=== PATIENT | female | born 1955 | race Caucasian/White ===

== ENCOUNTER 2019-05-07 10:03 | Outpatient (CLI) | payer MEDICARE, SELFPAY ==
--- NOTE | ~2019-05-07 | MM_ITS ---
EXAMINATION: MM screening chris BI w roscoe HISTORY: Screening mammogram TECHNIQUE: Craniocaudal and mediolateral oblique 3-D tomosynthesis images were obtained and synthetic 2-D images were generated. CAD analysis was submitted and interpreted. COMPARISON: 07/16/2017, 03/01/2016, 01/18/2015 bilateral digital screening mammogram examinations BREAST PARENCHYMAL COMPOSITION: There are scattered areas of fibroglandular density. FINDINGS: Stable mild retraction in the nipple area. There is no evidence of suspicious mass, calcifi cation, or architectural distortion to suggest malignancy in either breast. There has been no suspici ous interval change. IMPRESSION: 1. No mammographic evidence of malignancy. 2. Recommend routine screening mammography in one year. BI-RADS Category 1: Negative Reviewed, dictated and finalized at location A. GER OPERATIONS AND PROCUREMENT
== END 2019-05-07 10:04 | disposition home or self-care (01) ==
PROVIDERS: PCP Internal Medicine; Visit Provider Internal Medicine
DX: Z12.31 Encounter for screening mammogram for malignant neoplasm of breast (principal)
CPT/HCPCS: 77063; 77067

== ENCOUNTER 2019-06-10 10:18 | Outpatient (CLI) | payer MEDICARE, SELFPAY ==
--- NOTE | ~2019-06-10 | US_ITS ---
EXAMINATION: US retroperitoneal comp EXAM DATE: 06/10/2019 10:47 INDICATION: Chronic infective cystitis. TECHNIQUE: Multiple grayscale and Doppler images of the kidneys were obtained (by a technologist who performed the scan) and subsequently reviewed. There is no prior study for comparison. FINDINGS: Right kidney: There is normal contour and echogenicity. It measures 9.6 x 4.7 x 4.3 centimeters. Th ere are no focal renal lesions identified. There is no hydronephrosis. Left kidney: There is normal contour and echogenicity. It measures 10.6 x 4.2 x 5.3 centimeters. Pro bable left 6 mm stone. There is no hydronephrosis. Bladder unremarkable. IMPRESSION: 1. Probable left nephrolithiasis. 2. No hydronephrosis. Reviewed, dictated and finalized at location A.
== END 2019-06-10 10:19 | disposition home or self-care (01) ==
PROVIDERS: PCP Internal Medicine; Visit Provider Nurse Practitioner Adult Health
DX: N30.21 Other chronic cystitis with hematuria (principal)
CPT/HCPCS: 76770

== ENCOUNTER 2019-06-15 13:11 | Outpatient (CLI) | payer MEDICARE, SELFPAY ==
--- NOTE | ~2019-06-15 | XR_ITS ---
XR abdomen/kub 1V 06/15/2019 15:11 INDICATION: Left ureteral stone TECHNIQUE: KUB COMPARISON: Comparison to multiple prior studies sequentially, with oldest reviewed study dated 04/15. FINDINGS: Bowel gas pattern is normal. There are pelvic phleboliths. There is no evidence of free air , mass, organomegaly, ascites or obstruction. No abnormal calculi are seen. The bones appear intact . IMPRESSION: 1: No acute abdominal abnormality identified. Reviewed, dictated and finalized at location A.
== END 2019-06-15 13:12 | disposition home or self-care (01) ==
PROVIDERS: PCP Internal Medicine; Visit Provider Nurse Practitioner Adult Health
DX: N39.0 Urinary tract infection, site not specified (principal); N20.0 Calculus of kidney
CPT/HCPCS: 74018; 87086; 87088

== ENCOUNTER 2019-10-15 11:06 | Emergency (ER) | payer MEDICARE, SELFPAY ==
[2019-10-15 11:18] VITALS: BP 121/72; PULSE 95; RESP 20; TEMP 36.7; O2SAT 97
--- NOTE | 2019-10-15 11:24 | ED.URI ---
HPI - URI/Sore Throat General Chief Complaint: Upper Respiratory Infection Stated Complaint: pos sinus infect/fever/sore throat Time Seen by Provider: 10/15/19 11:24 Source: patient and RN notes reviewed History of Present Illness HPI Narrative: Patient is a 64-year-old female who presents the urgent care with complaints of mild cough, sore throat and sinus pressure. Patient states that is been ongoing for approximately 1 month and her doctor gave her a Z-Matt, which she finished approximately 2 weeks ago. Patient states she is also had Farrukh testing which was negative. Patient states that the last couple days a sinus pressure has increased severely and now she is having headaches. Denies of any nausea or vomiting. No other acute complaints. No acute distress noted. Patient read the plan of care. Related Data Home Medications Medication Instructions Recorded Confirmed levothyroxine 88 mcg tablet 88 mcg PO DAILY 02/12/19 10/15/19 liothyronine 5 mcg tablet 5 mcg PO DAILY 02/12/19 10/15/19 multivitamin 1 tablet PO DAILY 02/12/19 10/15/19 omeprazole 40 mg capsule,delayed 40 mg PO DAILY 02/12/19 10/15/19 release pregabalin 100 mg PO TID 10/15/19 10/15/19 Allergies Allergy/AdvReac Type Severity Reaction Status Date / Time cephalexin Allergy Unknown Rash Verified 10/15/19 11:30 Cephalosporins Allergy Unknown Hives Verified 10/15/19 11:30 morphine Allergy Unknown Rash Verified 10/15/19 11:30 Quinolones Allergy Unknown Rash Verified 10/15/19 11:30 Review of Systems Review of Systems: Narrative: CONSTITUTIONAL: Denies fever, chills, or sweats. EYES: Denies visual changes, redness, or discharge. ENT: Reports of sore throat, sinus pressure CARDIOVASCULAR: Denies chest pain, palpitations, or edema. RESPIRATORY: Reports a mild cough without dyspnea GASTROINTESTINAL: Denies abdominal pain, nausea, vomiting, or diarrhea. GENITOURINARY: Denies dysuria or hematuria. SKIN: Denies rash or itching. MUSCULOSKELETAL: Denies back pain, joint pain, or myalgia. NEUROLOGIC: Reports of headache All other systems reviewed are negative, except as documented in HPI. [facility] Social History Social History Smoking status: Never smoker Alcohol intake: never Comments At the time of my signature, I reviewed and agree with the nursing past medical, surgical, social, and family history. There is no relevant family history pertinent to the patient complaint. Exam Narrative: Exam Narrative: GENERAL: This is a well-nourished, well-developed patient, in no apparent distress. HEAD: normocephalic, atraumatic. Frontal sinus tenderness EYES: PERRL. Sclera clear/white. Vision is grossly intact. EARS: External ears normal, auditory canals clear and without drainage, TMs normal without perforation. Hearing grossly intact. NOSE: External nose normal with no obvious nasal discharge, mild bilateral erythemic nares with clear to yellow rhinorrhea THROAT: Mucous membranes moist, mild erythema noted posterior oropharynx with moderate postnasal drainage NECK: Neck supple CARDIOVASCULAR: Regular rate and rhythm without murmurs, gallops, or rubs. RESPIRATORY: Clear to auscultation. Breath sounds equal bilaterally. No wheezes, rales, or rhonchi. SKIN: warm, intact with no suspicious lesions or rash, good texture and turgor. NEURO: awake, alert, and oriented to person, place and time. There were no obvious focal neurologic abnormalities. EXTREMITIES: No clubbing, cyanosis, or edema. Course Vital Signs Vital signs: Vital Signs Temperature 98.1 F 10/15/19 11:18 Pulse Rate 95 10/15/19 11:18 Respiratory Rate 10/15/19 11:18 Blood Pressure 121/72 10/15/19 11:18 Pulse Oximetry 97 10/15/19 11:18 Temperature 98.1 F 10/15/19 11:18 Pulse Rate 95 10/15/19 11:18 Respiratory Rate 10/15/19 11:18 Blood Pressure 121/72 10/15/19 11:18 Pulse Oximetry 97 10/15/19 11:18 Reviewed
== END 2019-10-15 11:53 | disposition home or self-care (01) ==
PROVIDERS: Emergency Provider Nurse Practitioner Family; PCP Internal Medicine
DX: J02.9 Acute pharyngitis, unspecified (principal); J32.9 Chronic sinusitis, unspecified; J45.909 Unspecified asthma, uncomplicated; K21.9 Gastro-esophageal reflux disease without esophagitis; M79.7 Fibromyalgia; E03.9 Hypothyroidism, unspecified
CPT/HCPCS: 87081; 87880; 99213; G0463

== ENCOUNTER 2019-11-02 12:32 | Outpatient (CLI) | payer MEDICARE, SELFPAY ==
--- NOTE | ~2019-11-02 | XR_ITS ---
EXAMINATION: XR chest 2V DATE: 11/02/2019 13:00 INDICATION: Shortness of breath. Fever. TECHNIQUE: Frontal and lateral views of the chest were obtained. COMPARISON: Chest single view 07/29/2015 FINDINGS: Calcified left lung nodules are consistent with old granulomatous disease. There is mild at electasis in lingula. No pleural effusion or pneumothorax. The heart size is normal. There are suture anchors in left glenoid. Surgical clips in the right upper quadrant are likely from cholecystectomy. IMPRESSION: 1. Mild atelectasis in lingula. Reviewed, dictated and finalized at location B.
== END 2019-11-02 12:33 | disposition home or self-care (01) ==
PROVIDERS: PCP Internal Medicine; Visit Provider Internal Medicine
DX: R06.02 Shortness of breath (principal); J98.11 Atelectasis
CPT/HCPCS: 71046

== ENCOUNTER 2020-01-31 11:17 | Outpatient (CLI) | payer MEDICARE, SELFPAY ==
--- NOTE | ~2020-01-31 | CT_ITS ---
EXAMINATION: CT sinus wo con DATE: 01/31/2020 11:44 INDICATION: Chronic sinusitis. TECHNIQUE: Computed tomography (CT) of the paranasal sinuses was performed without intravenous contra st. Iterative reconstruction technique was employed. The dose-length product was 325.47 mGy-cm. COMPARISON: CT sinuses 04/02/2016 FINDINGS: The frontal sinuses are hypoplastic. The ethmoid, sphenoid, and right maxillary sinuses are clear. There is mild mucosal thickening in left maxillary sinus near the ostium. There is a Matthieu c ell on the right. The ostiomeatal units are patent. The middle turbinates are paradoxical. There is p neumatization of the vertical lamina of right middle turbinate. There is rightward deviation of the n stephanie septum. IMPRESSION: 1. Rightward deviation of the nasal septum. 2. Mild mucosal thickening in left maxillary sinus near the ostium. Reviewed, dictated and finalized at location A. ERECTOR
== END 2020-01-31 11:18 | disposition home or self-care (01) ==
PROVIDERS: PCP Internal Medicine
DX: J32.9 Chronic sinusitis, unspecified (principal)
CPT/HCPCS: 70486

== ENCOUNTER 2020-02-23 14:51 | Outpatient (CLI) | payer MEDICARE, SELFPAY ==
[2020-02-23 15:22] LABS: Basophils Percent Auto 0.6 % (0.2-1.2); Eosinophils Absolute Auto 0.1 K/mm3 (0-0.3); Eosinophils Percent Auto 2.8 % (0-4.4); Hematocrit 42.8 % (37.0-47.0); Hemoglobin 14.5 g/dL (12.0-15.0); Immature Granulocyte Absolute 0.02 K/mm3 (0.00-0.031); Immature Granulocyte Percent A 0.4 % (0-0.5); Lymphocytes Absolute Auto 0.49 K/mm3 (0.9-3.2); Lymphocytes Percent Auto 9.9 % (18.3-44.2); Mean Corpuscular HGB Conc 33.9 g/dl (32-36); Mean Corpuscular Hemoglobin 29.5 pg (26-34); Mean Corpuscular Volume 87.2 fl (80-100); Mean Platelet Volume 8.7 fl (7.4-10.4); Monocytes Absolute Auto 0.3 K/mm3 (0.1-0.6); Monocytes Percent Auto 5.5 % (2.6-8.5); Neutrophils Percent Auto 80.8 % (45.5-73.1); Platelet Count Result 255 k/mm3 (150-375); Red Blood Count 4.91 M/mm3 (4.2-5.4); Red Cell Distribution Width 13.1 % (11.5-14.5)
[2020-02-23 15:29] LABS: Alanine Aminotransferase 17 U/L (4-35); Albumin Level 4.7 g/dL (3.5-5.1); Alkaline Phosphatase 65 U/L (38-126); Anion Gap 8 mmol/L (8-16); Aspartate Amino Transferase 28 U/L (14-36); Bilirubin,Total 0.7 mg/dL (0.2-1.3); Blood Urea Nitrogen 12 mg/dL (7-17); Calcium 9.9 mg/dL (8.4-10.2); Carbon Dioxide 31 mmol/L (22-30); Chloride 102 mmol/L (98-107); Cholesterol 253 mg/dL (0-200); Estimated Glomerular Filt Rate 55; Glucose 92 mg/dL (65-105); HDL Direct 70 mg/dL; Sodium 141 mmol/L (137-145); Triglycerides 158 mg/dL (<150)
[2020-02-23 15:40] LABS: LDL Cholesterol Direct 118 mg/dL
[2020-02-23 16:29] LABS: Vitamin D 25 Hydroxy 27.8 ng/mL
== END 2020-02-23 14:52 | disposition home or self-care (01) ==
PROVIDERS: PCP Internal Medicine; Visit Provider Internal Medicine
DX: E55.9 Vitamin D deficiency, unspecified (principal); F32.9 Major depressive disorder, single episode, unspecified; Z51.81 Encounter for therapeutic drug level monitoring; Z79.899 Other long term (current) drug therapy; E03.9 Hypothyroidism, unspecified; E78.5 Hyperlipidemia, unspecified
CPT/HCPCS: 36415; 80053; 80061; 82306; 84443; 85025

== ENCOUNTER 2020-02-29 08:56 | Outpatient (CLI) | payer MEDICARE, SELFPAY ==
--- NOTE | ~2020-02-29 | DEXA_ITS ---
Bone Density Report Name: Nany Schuler Age: 64 Sex: Female Ethnicity: White Date of : 1955 Indication: osteopenia; parental hip fracture; height loss; prior fracture; asthma or emphysema; hysterectomy; Referring Provider: ZOE BARBOSA Study: Bone densitometry was performed. Exam Date: February 29, 2020 Accession number: [id number] Bone Density: Region BMD T-score Z-score Classification AP Spine (L1-L4) 1.005 -0.4 1.5 Normal Femoral Neck (Left) 0.642 -1.9 -0.3 Osteopenia Total Hip (Left) 0.744 -1.6 -0.3 Osteopenia Total Hip Bilateral Avg 0.748 -1.6 -0.3 Osteopenia Femoral Neck (Right) 0.635 -1.9 -0.3 Osteopenia Total Hip (Right) 0.750 -1.6 -0.3 Osteopenia World Health Organization criteria for BMD impression classify patients as: Normal (T-score at or above -1.0), Osteopenia (T-score between -1.0 and -2.5), or Osteoporosis (T-score at or below -2.5). 10-year Fracture Risk(1): Major Osteoporotic Fracture 29% Hip Fracture 3.4% Reported Risk Factors: [place] (), Neck BMD=0.635, BMI=28.7, previous fracture, parental fracture (1) FRAX(R) Version 3.08. Fracture probability calculated for an untreated patient. Fracture probability may be lower if the patient has received treatment. Previous Exams: Region Exam Age BMD T-score BMD Change BMD Change Date g/cm2 vs Baseline vs Previous AP Spine(L1-L4) 02/29/2020 64 1.005 -0.4 -0.170(-14.4%) -0.008(-0.8%) 12/05/2017 62 1.013 -0.3 -0.162(-13.8%) -0.162(-13.8%) 11/03/2008 53 1.175 1.2 Total Hip(Left) 02/29/2020 64 0.744 -1.6 -0.127(-14.6%) -0.038(-4.9%)* 12/05/2017 62 0.782 -1.3 -0.089(-10.2%) -0.089(-10.2%) 11/03/2008 53 0.871 -0.6 Total Hip(Right) 02/29/2020 64 0.750 -1.6 -0.121(-13.9%) -0.037(-4.8%)* 12/05/2017 62 0.788 -1.3 -0.084(-9.6%)# -0.084(-9.6%)# 11/03/2008 53 0.872 -0.6 *Denotes significance at 95% confidence level, LSC for AP Spine = 0.022 g/cm2, LSC for Total Hip = 0.027 g/cm2 Clinical Information Provided by Patient: Has had a low trauma fracture Parent has had a hip fracture Has used the following medications: Vitamin D Has the following medical conditions: Asthma or Emphysema, Hysterectomy, HYPOTHYRODISM Patient maximum height was 68 Menopause Age: 28 No regular weight bearing exercise Does not regularly consume dairy products Onset of menses at age 10 Number of children 3 Impression: The patient has low bone ma
== END 2020-02-29 08:57 | disposition home or self-care (01) ==
LOC: ANHIMG 09:06
PROVIDERS: PCP Internal Medicine; Visit Provider Internal Medicine
DX: Z78.0 Asymptomatic menopausal state (principal); M85.852 Other specified disorders of bone density and structure, left thigh; M85.851 Other specified disorders of bone density and structure, right thigh
CPT/HCPCS: 77080

== ENCOUNTER 2020-03-01 14:39 | Outpatient (CLI) | payer MEDICARE, SELFPAY ==
[2020-03-01 15:34] LABS: Alanine Aminotransferase 20 U/L (4-35); Albumin Level 4.4 g/dL (3.5-5.1); Alkaline Phosphatase 53 U/L (38-126); Anion Gap 10 mmol/L (8-16); Aspartate Amino Transferase 29 U/L (14-36); Bilirubin,Total 0.3 mg/dL (0.2-1.3); Blood Urea Nitrogen 9 mg/dL (7-17); Calcium 9.4 mg/dL (8.4-10.2); Carbon Dioxide 26 mmol/L (22-30); Chloride 103 mmol/L (98-107); Cholesterol 201 mg/dL (0-200); Estimated Glomerular Filt Rate > 60; Glucose 111 mg/dL (65-105); HDL Direct 73 mg/dL; Potassium 4.3 mmol/L (3.4-5.0); Sodium 139 mmol/L (137-145); Triglycerides 114 mg/dL (<150)
[2020-03-01 15:44] LABS: LDL Cholesterol Direct 91 mg/dL
[2020-03-01 16:27] LABS: Free T4 Free Thyroxine 0.56 ng/mL (0.78-2.19)
[2020-03-01 16:39] LABS: Folic Acid 10.6 ng/mL (2.76->20)
[2020-03-04 06:11] LABS: Triiodothyronine T3 Free 1.8 pg/mL (2.3-4.2)
== END 2020-03-01 14:40 | disposition home or self-care (01) ==
LOC: ANHLAB 14:42
PROVIDERS: PCP Internal Medicine; Visit Provider Internal Medicine Endocrinology, Diabetes & Metabolism
DX: E03.9 Hypothyroidism, unspecified (principal)
CPT/HCPCS: 36415; 80053; 80061; 82607; 82746; 84439; 84443; 84481

== ENCOUNTER 2020-03-29 11:44 | Outpatient (CLI) | payer MEDICARE, SELFPAY ==
--- NOTE | ~2020-03-29 | XR_ITS ---
XR ankle LT min 3V DATE: 03/29/2020 12:19 INDICATION: Fall. Lateral ankle and foot pain TECHNIQUE: 4 views of left ankle COMPARISON: None FINDINGS: No fracture or dislocation of the ankle or disruption of the ankle mortise. No periosteal r eaction or bone destruction. Plantar calcaneal enthesopathy; no associated periostitis or erosive change. IMPRESSION: Plantar calcaneal enthesopathy. Reviewed, dictated and finalized at location B. ATTENDANT
--- NOTE | ~2020-03-29 | XR_ITS ---
XR foot LT min 3V DATE: 03/29/2020 12:19 INDICATION: Fall. Lateral ankle and foot pain TECHNIQUE: 4 views COMPARISON: None FINDINGS: There is a linear nondisplaced fracture of the proximal medial aspect of the navicular bone with intra-articular extension at the talonavicular joint. No other fracture or dislocation, periosteal reaction or bone destruction is detected. Plantar calcaneal enthesopathy. Diffuse osteopenia. IMPRESSION: Linear nondisplaced intra-articular fracture of the navicular bone Reviewed, dictated and finalized at location B. IAL EDUCATION [employer] TE[employer]ER
== END 2020-03-29 11:45 | disposition home or self-care (01) ==
PROVIDERS: PCP Internal Medicine; Visit Provider Internal Medicine
DX: S92.252A Displaced fracture of navicular [scaphoid] of left foot, initial encounter for closed fracture (principal); M77.32 Calcaneal spur, left foot
CPT/HCPCS: 73610; 73630

== ENCOUNTER 2020-04-15 12:51 | Outpatient (CLI) | payer MEDICARE, SELFPAY ==
--- NOTE | ~2020-04-15 | XR_ITS ---
EXAMINATION: XR abdomen/kub 1V INDICATION: Left kidney stone TECHNIQUE: Supine views of the abdomen were obtained on 2 radiographs. COMPARISON: 06/15/2019 FINDINGS: There is a 4 mm stone in the left kidney lower pole. No additional urolithiasis is identifi ed. Phleboliths are noted in the pelvis. Cholecystectomy clips are present in the right upper quadran t. There is mild lumbar spondylosis. Mild osteoarthritis is noted in the hips. IMPRESSION: 1. Left nephrolithiasis. Reviewed, dictated and finalized at location A. SETTER IMPRESSION: 1. Left nephrolithiasis.
== END 2020-04-15 12:52 | disposition home or self-care (01) ==
PROVIDERS: PCP Internal Medicine; Visit Provider Nurse Practitioner Adult Health
DX: N20.0 Calculus of kidney (principal)
CPT/HCPCS: 74018

== ENCOUNTER 2020-04-29 09:39 | Outpatient (CLI) | payer MEDICARE, SELFPAY ==
[2020-04-29 10:51] LABS: Alanine Aminotransferase 19 U/L (4-35); Albumin Level 4.3 g/dL (3.5-5.1); Alkaline Phosphatase 56 U/L (38-126); Anion Gap 6 mmol/L (8-16); Aspartate Amino Transferase 27 U/L (14-36); Bilirubin,Total 0.7 mg/dL (0.2-1.3); Blood Urea Nitrogen 15 mg/dL (7-17); Calcium 9.4 mg/dL (8.4-10.2); Carbon Dioxide 33 mmol/L (22-30); Chloride 102 mmol/L (98-107); Estimated Glomerular Filt Rate > 60; Glucose 94 mg/dL (65-105); Potassium 4.3 mmol/L (3.4-5.0); Sodium 141 mmol/L (137-145)
[2020-04-29 11:20] LABS: Thyroid Stimulating Hormone < 0.015 uIU/mL (0.465-4.680)
[2020-04-29 11:52] LABS: Free T4 Free Thyroxine 1.61 ng/mL (0.78-2.19)
[2020-04-29 12:27] LABS: Hemoglobin A1C 4.7 % (<5.7)
[2020-05-02 05:03] LABS: Insulin Level Total 8.1 uIU/mL (<=19.6)
[2020-05-03 06:37] LABS: Triiodothyronine T3 Free 3.5 pg/mL (2.3-4.2)
== END 2020-04-29 09:40 | disposition home or self-care (01) ==
PROVIDERS: PCP Internal Medicine; Visit Provider Internal Medicine Endocrinology, Diabetes & Metabolism
DX: E03.9 Hypothyroidism, unspecified (principal); R73.01 Impaired fasting glucose
CPT/HCPCS: 36415; 80053; 83036; 83525; 84439; 84443; 84481

== ENCOUNTER 2020-06-09 08:46 | Outpatient (CLI) | payer MEDICARE, SELFPAY ==
[2020-06-09 09:19] LABS: Alanine Aminotransferase 15 U/L (4-35); Albumin Level 4.5 g/dL (3.5-5.1); Alkaline Phosphatase 42 U/L (38-126); Anion Gap 6 mmol/L (8-16); Aspartate Amino Transferase 33 U/L (14-36); Bilirubin,Total 1.1 mg/dL (0.2-1.3); Blood Urea Nitrogen 11 mg/dL (7-17); Calcium 8.9 mg/dL (8.4-10.2); Carbon Dioxide 28 mmol/L (22-30); Chloride 103 mmol/L (98-107); Cholesterol 193 mg/dL (0-200); Estimated Glomerular Filt Rate > 60; Glucose 90 mg/dL (65-105); HDL Direct 64 mg/dL; Potassium 4.4 mmol/L (3.4-5.0); Sodium 137 mmol/L (137-145); Triglycerides 170 mg/dL (<150)
[2020-06-09 09:30] LABS: LDL Cholesterol Direct 80 mg/dL
[2020-06-09 09:54] LABS: Thyroid Stimulating Hormone < 0.015 uIU/mL (0.465-4.680)
[2020-06-09 09:56] LABS: Free T4 Free Thyroxine 1.39 ng/mL (0.78-2.19)
[2020-06-09 12:38] LABS: Folic Acid 8.6 ng/mL (2.76->20)
[2020-06-12 08:09] LABS: Triiodothyronine T3 Free 3.9 pg/mL (2.3-4.2)
== END 2020-06-09 08:47 | disposition home or self-care (01) ==
PROVIDERS: PCP Internal Medicine; Visit Provider Internal Medicine Endocrinology, Diabetes & Metabolism
DX: E03.9 Hypothyroidism, unspecified (principal); Z13.220 Encounter for screening for lipoid disorders
CPT/HCPCS: 36415; 80053; 80061; 82607; 82746; 84439; 84443; 84481

== ENCOUNTER 2020-06-17 11:21 | Outpatient (CLI) | payer MEDICARE, SELFPAY ==
--- NOTE | ~2020-06-17 | US_ITS ---
US thyroid INDICATION: Multinodular goiter TECHNIQUE: Real-time sonographic images of the thyroid gland were obtained. COMPARISON: Ultrasound dated 06/26/2018 FINDINGS: The right thyroid lobe measures 3.5 x 1.4 x 1.2 cm. The left thyroid lobe measures 2.7 x 1 .2 x 0.7 cm. There is diffusely heterogeneous echotexture and echogenicity throughout the thyroid gla nd. No discrete nodules identified. Normal vascular flow is present. IMPRESSION: 1. Heterogeneous atrophic thyroid gland without discrete mass. Reviewed, dictated and finalized at location B.
== END 2020-06-17 11:22 | disposition home or self-care (01) ==
PROVIDERS: PCP Internal Medicine; Visit Provider Internal Medicine Endocrinology, Diabetes & Metabolism
DX: E04.2 Nontoxic multinodular goiter (principal); E03.9 Hypothyroidism, unspecified
CPT/HCPCS: 76536

== ENCOUNTER 2020-08-10 13:02 | Outpatient (CLI) | payer MEDICARE, SELFPAY ==
[2020-08-10 17:29] LABS: Alanine Aminotransferase 16 U/L (4-35); Albumin Level 4.4 g/dL (3.5-5.1); Alkaline Phosphatase 47 U/L (38-126); Anion Gap 7 mmol/L (8-16); Aspartate Amino Transferase 27 U/L (14-36); Bilirubin,Total 0.4 mg/dL (0.2-1.3); Blood Urea Nitrogen 12 mg/dL (7-17); Calcium 9.6 mg/dL (8.4-10.2); Carbon Dioxide 26 mmol/L (22-30); Chloride 107 mmol/L (98-107); Estimated Glomerular Filt Rate 55; Glucose 92 mg/dL (65-105); Potassium 3.8 mmol/L (3.4-5.0); Sodium 140 mmol/L (137-145)
[2020-08-10 18:00] LABS: Thyroid Stimulating Hormone < 0.015 uIU/mL (0.465-4.680)
[2020-08-10 18:34] LABS: Folic Acid 9.5 ng/mL (2.76->20)
[2020-08-10 20:49] LABS: Free T4 Free Thyroxine 1.25 ng/mL (0.78-2.19)
[2020-08-13 08:55] LABS: Triiodothyronine T3 Free 3.1 pg/mL (2.3-4.2)
== END 2020-08-10 13:03 | disposition home or self-care (01) ==
LOC: ANHLAB 13:07
PROVIDERS: PCP Internal Medicine; Visit Provider Internal Medicine Endocrinology, Diabetes & Metabolism
DX: E03.9 Hypothyroidism, unspecified (principal); E53.8 Deficiency of other specified B group vitamins
CPT/HCPCS: 36415; 80053; 82607; 82746; 84439; 84443; 84481

== ENCOUNTER 2020-10-26 11:52 | Outpatient (CLI) | payer MEDICARE, SELFPAY ==
--- NOTE | ~2020-10-26 | XR_ITS ---
EXAMINATION: XR abdomen/kub 1V INDICATION: Left-sided kidney TECHNIQUE: Supine views of the abdomen were obtained on 2 radiographs. COMPARISON: 04/15/2020 FINDINGS: A 4 mm stone projects in the left kidney lower pole. No additional urolithiasis is identifi ed. There cholecystectomy clips in the right upper quadrant. Phleboliths are noted in the pelvis. The re is mild osteoarthritis of the hips. Mild lumbar spondylosis is noted. IMPRESSION: 1. Stable left nephrolithiasis. Reviewed, dictated and finalized at location A.
== END 2020-10-26 11:53 | disposition home or self-care (01) ==
PROVIDERS: PCP Internal Medicine; Visit Provider Nurse Practitioner Adult Health
DX: N20.0 Calculus of kidney (principal); M47.816 Spondylosis without myelopathy or radiculopathy, lumbar region
CPT/HCPCS: 74018

== ENCOUNTER 2020-10-28 02:12 | Day surgery (SDC) | payer MEDICARE, SELFPAY ==
[2020-10-14 14:53] VITALS: BMI 28.3
--- NOTE | 2020-10-28 08:27 | WPDANESEPPF ---
Anes - Initial Pre Proc Eval Procedure: Operation Date: 10/28/20 10:00 Proposed Procedures p Esophagogastroduodenoscopy & Screening Colonoscopy - Tristan Kelly MD Date/Time: 10/28/20 08:27 Surgeon: Tristan Kelly MD Pre Op Diagnosis: family hx of colon ca, family hx of colon polyps Patient Data Age: 65 Gender: F Height: 1.68 m Weight: 79.5 kg Allergies Allergy/AdvReac Type Severity Reaction Status Date / Time cephalexin Allergy Severe Rash Verified 10/28/20 09:40 morphine Allergy Severe Rash Verified 10/28/20 09:40 Quinolones Allergy Severe Rash Verified 10/28/20 09:40 Cephalosporins Allergy Mild Hives Verified 10/28/20 09:40 Home Medications Medication Instructions Recorded Confirmed Type multivitamin 1 tablet PO DAILY 02/12/19 10/28/20 History fluticasone propionate [Flonase 2 spray NASAL DAILY #15.8 ml 10/15/19 10/28/20 Rx Allergy Relief] pregabalin 100 mg PO TID 10/15/19 10/28/20 History omeprazole 40 mg capsule,delayed 40 mg PO DAILY #90 cap 08/29/20 10/28/20 Rx release duloxetine 60 mg capsule,delayed 60 mg PO DAILY #90 cap 10/14/20 10/28/20 Rx release hydrocodone-acetaminophen 1 tablet PO Q4H PRN 10/14/20 10/28/20 History levothyroxine 112 mcg PO DAILY 10/14/20 10/28/20 History topiramate [Topamax] 50 mg PO BID 10/14/20 10/28/20 History Patient hx anesthesia problems: none Family hx anesthesia problems: none PMFSH Past Medical History Medical History (Updated 10/28/20 @ 08:28 by Thomas Mars MD) Age related osteoporosis Chronic migraine Dysphagia Fibromyalgia GERD (gastroesophageal reflux disease) History of nephrolithiasis Hypercholesterolemia Hypothyroidism (acquired) Mild intermittent asthma without complication Osteopenia of multiple sites Overweight (BMI 25.0-29.9) Primary osteoarthritis involving multiple joints Recurrent major depressive disorder, in partial remission Seasonal allergic rhinitis Uncomplicated asthma Family History Family History Father Hypertension, Onset Age: 83 Cerebrovascular accident, Onset Age: 83 Carcinoma of colon Mother Hypertension Family history of migraine headaches Family history of arthritis Family history of malignant neoplasm of breast Family history of Alzheimer's disease Family history of diabetes mellitus in first degree relative Family history of malignant neoplasm of breast in first degree relative Family history of thyroid disease Diabetes mellitus Family history of obesity Family history of osteoporosis Depression Sibling Family history of malignant neoplasm of cervix Family history of lung cancer Family history of malignant neoplasm of uterus Social History Social History Smoking status: Never smoker Alcohol intake: former Substance use: never Substance use type: does not use Living arrangements: with family Gender identity (if verbalized by the patient): Female Spiritual care concerns: No Anes - Eval Final PreProcedure Day of Procedure 10/28/20 08:27 Patient weight: overweight Heart: regular rate and rhythm Lungs: clear to auscultation and normal air movement Airway: Mallampati scale class II Neurological: alert and oriented Last oral intake: >/= 8 hours ASA classification: III Emergent: no Anesthetic plan: proceed Anesthesia type and monitoring: general GIVS Informed Consent: The patient's anesthetic plan and its attendant risks and benefits were discussed with the patient/family/POA. Questions were solicited and answers provided to the satisfaction of the patient/family/POA.
[2020-10-28 09:42] VITALS: BP 127/79; PULSE 104; RESP 18; TEMP 36.4; O2SAT 98
[2020-10-28] MEDS: LACTATED RINGERS 1,000 ML 150 ML IV CONT (10:02)
--- NOTE | 2020-10-28 10:07 | WPDGICN ---
Assessment and Plan Assessment and plan (1) Epigastric abdominal pain: Code(s): R10.13 - Epigastric pain Status: Acute (2) RUQ abdominal pain: Code(s): R10.11 - Right upper quadrant pain Status: Acute Assessment and Plan: Patient has epigastric and right upper quadrant discomfort associated with belching. Plan is for EGD to assess more thoroughly. Patient specifically denies any difficulty swallowing at the present time period (3) Family history of malignant neoplasm of colon in first degree relative diagnosed when younger than 60 years of age: Code(s): Z80.0 - Family history of malignant neoplasm of digestive organs Status: Acute Assessment and Plan: Patient has family history of colon cancer in her sister. For this reason screening colonoscopy in advised about every 5 year intervals. GI Consult Note Consult date/time: 10/28/20 10:07 HPI: Nany Schuler is a 65 year old female presents for GI endoscopy. Patient has a family history of colon cancer in her sister. For this reason follow-up colonoscopy is advised. Her last exam was in 2014. Patient reports that her bowel habits are normal she denies any blood in her stools. Additionally she now complains of some left upper quadrant abdominal discomfort. She states she has no difficulty swallowing foods. But she will burp and belch intermittently. She states this is not always related to diet. Does not wake her up at sleep. She has had some epigastric discomfort. Patient denies any weight loss. She does have a history of cholecystectomy several years ago. Review of Systems Review of Systems: All systems reviewed & are unremarkable except as noted in HPI and below PMFSH Past Medical History Medical History (Updated 10/28/20 @ 10:10 by Tristan Kelly MD) Age related osteoporosis Chronic migraine Dysphagia Fibromyalgia GERD (gastroesophageal reflux disease) History of nephrolithiasis Hypercholesterolemia Hypothyroidism (acquired) Mild intermittent asthma without complication Osteopenia of multiple sites Overweight (BMI 25.0-29.9) Primary osteoarthritis involving multiple joints Recurrent major depressive disorder, in partial remission Seasonal allergic rhinitis Uncomplicated asthma Family History Family History Father Hypertension, Onset Age: 83 Cerebrovascular accident, Onset Age: 83 Carcinoma of colon Mother Hypertension Family history of migraine headaches Family history of arthritis Family history of malignant neoplasm of breast Family history of Alzheimer's disease Family history of diabetes mellitus in first degree relative Family history of malignant neoplasm of breast in first degree relative Family history of thyroid disease Diabetes mellitus Family history of obesity Family history of osteoporosis Depression Sibling Family history of malignant neoplasm of cervix Family history of lung cancer Family history of malignant neoplasm of uterus Social History Social History Smoking status: Never smoker Alcohol intake: former Substance use: never Substance use type: does not use Living arrangements: with family Gender identity (if verbalized by the patient): Female Spiritual care concerns: No Meds Home Medications and Allergies Home Medications Medication Instructions Recorded Confirmed Type multivitamin 1 tablet PO DAILY 02/12/19 10/28/20 History fluticasone propionate [Flonase 2 spray NASAL DAILY #15.8 ml 10/15/19 10/28/20 Rx Allergy Relief] pregabalin 100 mg PO TID 10/15/19 10/28/20 History omeprazole 40 mg capsule,delayed 40 mg PO DAILY #90 cap 08/29/20 10/28/20 Rx release duloxetine 60 mg capsule,delayed 60 mg PO DAILY #90 cap 10/14/20 10/28/20 Rx release hydrocodone-acetaminophen 1 tablet PO Q4H PRN 10/14/20 10/28/20
[2020-10-28] MEDS: BENZOCAINE (*SP) 60 ML SPRAY CAN (HURRICAINE) 1 SPRAY MUCOUS MEM (10:27)
[2020-10-28 10:55] VITALS: BP 93/52; PULSE 90; RESP 17; O2SAT 99
[2020-10-28 11:05] VITALS: BP 100/59; PULSE 86; RESP 24; O2SAT 99
[2020-10-28 11:15] VITALS: BP 120/74; PULSE 82; RESP 13; O2SAT 99
== END 2020-10-28 11:26 | disposition home or self-care (01) ==
PROVIDERS: PCP Internal Medicine; Visit Provider Internal Medicine Gastroenterology
PROC: 0DJ08ZZ Inspection of Upper Intestinal Tract, Via Natural or Artificial Opening Endoscopic (ICD-10-PCS; CPT 43235; principal; 2020-10-28 10:00)
DX: Z12.11 Encounter for screening for malignant neoplasm of colon (principal); K63.5 Polyp of colon; K64.8 Other hemorrhoids; L57.0 Actinic keratosis; R10.13 Epigastric pain; R10.11 Right upper quadrant pain; Z80.0 Family history of malignant neoplasm of digestive organs; M81.0 Age-related osteoporosis without current pathological fracture; M79.7 Fibromyalgia; K21.9 Gastro-esophageal reflux disease without esophagitis; E78.00 Pure hypercholesterolemia, unspecified; E03.9 Hypothyroidism, unspecified; J45.20 Mild intermittent asthma, uncomplicated; F32.9 Major depressive disorder, single episode, unspecified; Z83.71 Family history of colonic polyps
CPT/HCPCS: 45385; 43239; 87081; 88305; J2704; J7120

== ENCOUNTER 2020-11-02 10:00 | Outpatient (CLI) | payer MEDICARE, SELFPAY ==
--- NOTE | ~2020-11-02 | MM_ITS ---
EXAMINATION: MM screening chris BI w roscoe HISTORY: Screening TECHNIQUE: Craniocaudal and mediolateral oblique 3-D tomosynthesis images were obtained and synthetic 2-D images were generated. CAD analysis was submitted and interpreted. COMPARISON: Comparison to multiple prior studies sequentially, with oldest reviewed study dated 04/2012. BREAST PARENCHYMAL COMPOSITION: There are scattered areas of fibroglandular density. FINDINGS: There is no evidence of suspicious mass, calcification, or architectural distortion to sugg est malignancy in either breast. There has been no suspicious interval change. IMPRESSION: 1. No mammographic evidence of malignancy. 2. Recommend routine screening mammography in one year. BI-RADS Category 1: Negative Reviewed, dictated and finalized at location A.
== END 2020-11-02 10:01 | disposition home or self-care (01) ==
LOC: ANHIMG 10:02
PROVIDERS: PCP Internal Medicine; Visit Provider Internal Medicine
DX: Z12.31 Encounter for screening mammogram for malignant neoplasm of breast (principal)
CPT/HCPCS: 77063; 77067

== ENCOUNTER 2020-11-21 11:44 | Outpatient (CLI) | payer MEDICARE, SELFPAY ==
[2020-11-21 13:39] LABS: Vitamin D 25 Hydroxy 58.9 ng/mL
== END 2020-11-21 11:45 | disposition home or self-care (01) ==
LOC: ANHLAB 11:45
PROVIDERS: PCP Internal Medicine; Visit Provider Internal Medicine
DX: E55.9 Vitamin D deficiency, unspecified (principal)
CPT/HCPCS: 36415; 82306

== ENCOUNTER 2020-11-21 11:49 | Outpatient (CLI) | payer MEDICARE, SELFPAY ==
[2020-11-21 12:31] LABS: Alanine Aminotransferase 18 U/L (4-35); Albumin Level 4.7 g/dL (3.5-5.1); Alkaline Phosphatase 56 U/L (38-126); Anion Gap 13 mmol/L (8-16); Aspartate Amino Transferase 26 U/L (14-36); Bilirubin,Total 0.5 mg/dL (0.2-1.3); Blood Urea Nitrogen 10 mg/dL (7-17); Calcium 9.5 mg/dL (8.4-10.2); Carbon Dioxide 20 mmol/L (22-30); Chloride 111 mmol/L (98-107); Estimated Glomerular Filt Rate 55; Glucose 102 mg/dL (65-110); Potassium 3.5 mmol/L (3.4-5.0); Sodium 144 mmol/L (137-145)
[2020-11-21 13:03] LABS: Thyroid Stimulating Hormone 0.113 uIU/mL (0.465-4.680)
[2020-11-21 13:39] LABS: Free T4 Free Thyroxine 1.15 ng/mL (0.78-2.19)
[2020-11-21 13:46] LABS: Folic Acid 7.7 ng/mL (2.76->20); Vitamin B12 > 1000.0 pg/mL (239-931)
[2020-11-23 04:44] LABS: Thyroid Peroxidase Antibodies 372 IU/mL (<9)
[2020-11-23 13:02] LABS: Triiodothyronine T3 Free 2.7 pg/mL (2.3-4.2)
== END 2020-11-21 11:50 | disposition home or self-care (01) ==
LOC: ANHLAB 11:53
PROVIDERS: PCP Internal Medicine; Visit Provider Internal Medicine Endocrinology, Diabetes & Metabolism
DX: E03.9 Hypothyroidism, unspecified (principal); E53.8 Deficiency of other specified B group vitamins; E55.9 Vitamin D deficiency, unspecified
CPT/HCPCS: 36415; 80053; 82306; 82607; 82746; 84439; 84443; 84481; 86376